=== PATIENT | female | born 1970 | race Caucasian/White ===

== ENCOUNTER → 2022-09-20 | Outpatient (CLI) | payer OTHER | END | disposition home or self-care (01) | LOC: RAH 14:26 | PROVIDERS: ATTEND Internal Medicine | DX: R92.8 Other abnormal and inconclusive findings on diagnostic imaging of breast (principal) | CPT/HCPCS: 77066 ==

== ENCOUNTER 2023-01-06 16:46 | Emergency (ER) | payer OTHER ==
[~2023-01-06] VITALS: Ht 162.6 cm; Wt 99.8 kg
[2023-01-06 18:01] LABS: BASOPHILS # (AUTO) 0.19 K/uL (0.00-0.20); BASOPHILS % (AUTO) 0.9 % (0.0-5.0); EOSINOPHILS % (AUTO) 1.5 % (0.0-8.0); HEMATOCRIT 39.9 % (36-48); IMMATURE GRANULOCYTE ABSOLUTE 0.14 K/uL (0-1); LYMPHOCYTES # (AUTO) 6.8 K/uL (1.0-4.8); LYMPHOCYTES % (AUTO) 33.8 % (21.0-51.0); MEAN CORPUSCULAR HGB CONC 33.3 g/dL (32.0-36.0); MEAN CORPUSCULAR VOLUME 89.9 fL (79-99); MONOCYTES # (AUTO) 1.2 K/uL (0.1-1.0); MONOCYTES % (AUTO) 6.1 % (3.0-13.0); NEUTROPHILS # (AUTO) 11.5 K/uL (1.8-7.7); PLATELET COUNT (AUTO) 448 K/uL (130-400); RED BLOOD CELL COUNT(AUTO) 4.44 MIL/uL (4.00-5.50); WHITE BLOOD COUNT (AUTO) 20.3 K/uL (4.8-10.8)
[2023-01-06 18:02] LABS: APPEARANCE,URINE CLOUDY (CLEAR); BILIRUBIN,URINE NEGATIVE (NEGATIVE); COLOR,URINE LIGHT-YELLOW (YELLOW); GLUCOSE, URINE (UA) NEGATIVE (NEGATIVE); KETONES,URINE NEGATIVE (NEGATIVE); LEUKOCYTE ESTERASE ,URINE 25 Leu/uL (NEGATIVE); NITRATE,URINE NEGATIVE (NEGATIVE); OCCULT BLOOD,URINE NEGATIVE (NEGATIVE); PROTEIN,URINE NEGATIVE (NEGATIVE); UROBILINOGEN,URINE 0.2 mg/dL (0.2-1.0)
[2023-01-06 18:06] LABS: ADD UA MICROSCOPIC YES
[2023-01-06 18:09] LABS: CREATININE 0.7 mg/dL (0.5-1.5); POTASSIUM 3.6 mmol/L (3.5-5.1)
[2023-01-06 18:12] LABS: BACTERIA,URINE RARE /HPF (None Seen); MUCUS,URINE RARE LPF (None Seen); RBC,URINE 0-1 /HPF (0-1); SQUAMOUS EPITHELIAL CELL,UR MANY /HPF (0-2)
[2023-01-06 18:18] LABS: ALBUMIN 3.3 g/dL (3.5-5.0); BILIRUBIN,TOTAL 0.1 mg/dL (0.2-1.0); TOTAL PROTEIN, SERUM 6.8 g/dL (6.0-8.3)
[2023-01-06 19:06] LABS: RAPID GROUP A STREP negative (NEGATIVE)
[2023-01-06 19:11] LABS: SARS-CoV-2, RNA, NAAT NEGATIVE SARS CoV-2 (NEGATIVE)
[2023-01-06 19:18] LABS: INFLUENZA TYPE A Negative For Type A (NEGATIVE); INFLUENZA TYPE B Negative For Type B (NEGATIVE)
[2023-01-06] MEDS ORDERED: CEPH500B PO (19:23)
[2023-01-06] MEDS ORDERED: BENZ200C53 PO (19:24)
[2023-01-06 19:28] VITALS: BP 128/88; PULSE 80; RESP 16; O2SAT 97
== END 2023-01-06 19:33 | disposition home or self-care (01) ==
LOC: EDH 16:46
DX: N39.0 Urinary tract infection, site not specified (principal); D72.829 Elevated white blood cell count, unspecified; R05.9 Cough, unspecified; F41.9 Anxiety disorder, unspecified; F31.9 Bipolar disorder, unspecified; Z20.822 Contact with and (suspected) exposure to COVID-19
CPT/HCPCS: 99285; 71045; 87635; 84484; 80053; 85025; 87880; 87804 ×2; 81001; 36415; 93005; C9803

== ENCOUNTER → 2025-01-15 | Outpatient (CLI) | payer OTHER ==
[~2025-01-15] MED LIST: BENZ200C53 PO; CEPH500B PO
[2025-01-15 22:16] VITALS: PULSE 81; RESP 12
[2025-01-15 22:30] VITALS: PULSE 83; RESP 14
[2025-01-15 23:00] VITALS: PULSE 83; RESP 14
[2025-01-15 23:37] VITALS: PULSE 109; RESP 14
[2025-01-16] VITALS (20 sets, daily range): PULSE 88–104; RESP 11–15
== END | disposition home or self-care (01) ==
LOC: SLP 20:51
PROVIDERS: ATTEND Nurse Practitioner Family
DX: G47.33 Obstructive sleep apnea (adult) (pediatric) (principal)
CPT/HCPCS: 95811